=== PATIENT | male | born 1975 | race Caucasian/White ===

== ENCOUNTER 2023-06-20 09:41 | Outpatient (CLI) | payer BC | END 2023-06-20 09:42 | disposition home or self-care (01) | LOC: SCSMRI 09:41 | PROVIDERS: ATTEND Surgery | DX: M50.122 Cervical disc disorder at C5-C6 level with radiculopathy (principal); M54.50 Low back pain, unspecified; M50.123 Cervical disc disorder at C6-C7 level with radiculopathy; M89.38 Hypertrophy of bone, other site | CPT/HCPCS: 72141; 72148 ==

== ENCOUNTER 2023-09-04 05:31 | Day surgery (SDC) | payer BC ==
[2023-08-30 09:50] VITALS: BMI 26.6
[2023-09-04] MEDS ORDERED: Thrombin 5000 UNITS/5 ML VIAL ONE (06:17)
[2023-09-04] MEDS ORDERED: CEFAZOLIN 2 GM VIAL ONE ×2 (06:19→10:58)
[2023-09-04] MEDS ORDERED: Sodium Chloride 0.9% 100 ML ONE ×2 (06:20→10:58)
[2023-09-04] MEDS ORDERED: fentaNYL PF 100 MCG/2 ML SYRINGE ONE (06:44)
[2023-09-04] MEDS ORDERED: Midazolam HCl 2 mg/2 ml Vial ONE (06:58)
[2023-09-04] MEDS ORDERED: Ondansetron PF 4 MG/2 ML Vial ONE (07:09)
[2023-09-04] MEDS ORDERED: PROPOFOL 200 MG/20 ML VIAL ONE (07:09)
[2023-09-04] MEDS ORDERED: Rocuronium Bromide 10 MG/ML (10ML VIAL) ONE (07:09)
[2023-09-04] MEDS ORDERED: Ketorolac Tromethamine 30 MG/ML VIAL ONE (07:09)
[2023-09-04] MEDS ORDERED: Lidocaine 1% PF 5 ML VIAL ONE (07:09)
[2023-09-04] MEDS ORDERED: fentaNYL 50 mcg/mL 1 mL Vial ONE ×2 (07:39→08:44)
[2023-09-04] MEDS ORDERED: SUGAMMADEX SODIUM 200 MG/2 ML VIAL ONE (07:39)
== END 2023-09-04 11:46 | disposition home or self-care (01) ==
LOC: SDC 05:31
PROVIDERS: ATTEND Neurological Surgery
PROC: 0RG10A0 Fusion of Cervical Vertebral Joint with Interbody Fusion Device, Anterior Approach, Anterior Column, Open Approach (ICD-10-PCS; principal; 2023-09-04)
DX: M54.12 Radiculopathy, cervical region (principal); Z87.891 Personal history of nicotine dependence
CPT/HCPCS: C1713; C1889; J1885; J2250; J2405; J2704; J3010; J3490